=== PATIENT | female | born 1980 | race Caucasian/White ===

== ENCOUNTER 2021-09-30 21:22 | Emergency (ER) | payer OTHER ==
[2021-09-30] MEDS ORDERED: Sodium Chloride 0.9% 10 ML Syringe FLUSH PRN (21:46)
[2021-09-30] MEDS ORDERED: Sodium Chloride 0.9% 1,000 ML IV ONE (21:52)
[2021-09-30] MEDS ORDERED: Ondansetron 4 MG/2 ML SDV IVPUSH ONE (21:54)
[2021-09-30 22:07] LABS: ANION GAP 11.3 meq/L (7-15); CHLORIDE,CL 100 mmol/L (98-107); SODIUM,NA 137 mmol/L (136-145)
[2021-09-30 22:08] LABS: ESTIMATED GFR 93 mL/min (>=60)
== END 2021-09-30 23:05 | disposition home or self-care (01) ==
LOC: LL.ED 21:22
DX: T67.5XXA Heat exhaustion, unspecified, initial encounter (principal); E86.0 Dehydration; E66.9 Obesity, unspecified; Z68.30 Body mass index [BMI] 30.0-30.9, adult
CPT/HCPCS: 80053; 85025; 96360; 99284-25; J7030